=== PATIENT | female | born 2005 | race American Indian/Alaskan Native ===

== ENCOUNTER → 2024-04-10 13:53 | Outpatient (CLI) | payer MEDICAID, SELFPAY ==
--- NOTE | 2024-04-10 13:57 | DI.RAD.S_ITS ---
PROCEDURE: XR ANKLE LT MIN 3V INDICATIONS: ANKEL PAIN TECHNIQUE: 3 views of the ankle were acquired. COMPARISON: None. FINDINGS: Bones: Old-appearing rib subtotally united avulsion fracture of the dorsal navicular . Tibiotalar and talocalcaneal joints: Small effusion is present. Ankle mortise and talar cannulae joints are normal without alignment. Soft tissues: No soft tissue swelling, calcification or mass. IMPRESSION: Small effusion present. Old subtotally united fracture of the navicular Dictated by: Lazaro Bowie M.D. on 04/11/2024 at 7:44 Approved by: Lazaro Bowie M.D. on 04/11/2024 at 7:45
== END ==
PROVIDERS: Referring Provider Nurse Practitioner Family; Visit Provider Nurse Practitioner Family
DX: S90.02XA Contusion of left ankle, initial encounter (principal); M25.572 Pain in left ankle and joints of left foot; M25.472 Effusion, left ankle; S92.252S Displaced fracture of navicular [scaphoid] of left foot, sequela
CPT/HCPCS: 73610